=== PATIENT | female | born 1995 | race American Indian/Alaskan Native ===

== ENCOUNTER 2017-06-10 11:15 | Emergency (ER) | payer MEDICAID ==
--- NOTE | 2017-06-10 12:37 | Emergency Department Report ---
ED Female HPI - General Chief complaint: Urogenital-Female Stated complaint: VAGINAL DISCHARGE Time Seen by Provider: 06/10/17 12:25 Source: patient Mode of arrival: Ambulatory Limitations: No Limitations - History of Present Illness Initial comments: 22-year-old female past medical history Chlamydia, presents with complaint of one week of intermittent vaginal discharge and vaginal irritation. Patient denies fever chills nausea vomiting or abdominal pain. Denies dysuria. Patient is awake alert and oriented 3 nontoxic appearing. LMP is now. Patient denies dysuria or increased urinary frequency. MD Complaint: vaginal discharge, dysuria Onset/Timin -: week(s) Location: labia Severity: mild Quality: burning Consistency: intermittent Are you Now?: No Last Menstrual Period: 06/09/17 EDC: 03/16/18 - Related Data Previous Rx's Medication Instructions Recorded Last Taken Type metroNIDAZOLE [Metronidazole] 500 mg PO BID #14 tablet 06/10/17 Unknown Rx Allergies Allergy/AdvReac Type Severity Reaction Status Date / Time No Known Allergies Allergy Unverified 06/10/17 11:25 ED Review of Systems ROS: Stated complaint: VAGINAL DISCHARGE Other details as noted in HPI Constitutional: denies: chills, fever Eyes: denies: eye pain, eye discharge, vision change ENT: denies: ear pain, throat pain Respiratory: denies: cough, shortness of breath, wheezing Cardiovascular: denies: chest pain, palpitations Endocrine: no symptoms reported Gastrointestinal: denies: abdominal pain, nausea, diarrhea Genitourinary: discharge. denies: urgency, dysuria Musculoskeletal: denies: back pain, joint swelling, arthralgia Skin: denies: rash, lesions Neurological: denies: headache, weakness, paresthesias Psychiatric: denies: anxiety, depression Hematological/Lymphatic: denies: easy bleeding, easy bruising ED Past Medical Hx - Past Medical History Previous Medical History?: No - Surgical History Past Surgical History?: Yes Additional Surgical History: - Social History Smoking Status: Never Smoker Substance Use Type: None - Medications Home Medications: Home Medications Medication Instructions Recorded Confirmed Last Taken Type metroNIDAZOLE [Metronidazole] 500 mg PO BID #14 tablet 06/10/17 Unknown Rx ED Physical Exam - General Limitations: No Limitations General appearance: alert, in no apparent distress - Head Head exam: Present: atraumatic, normocephalic - Eye Eye exam: Present: normal appearance, PERRL, EOMI - ENT ENT exam: Present: mucous membranes moist - Neck Neck exam: Present: normal inspection - Respiratory Respiratory exam: Present: normal lung sounds bilaterally. Absent: respiratory distress - Cardiovascular Cardiovascular Exam: Present: regular rate, normal rhythm. Absent: systolic murmur, diastolic murmur, rubs, gallop - GI/Abdominal GI/Abdominal exam: Present: soft, normal bowel sounds - Speculum exam: Present: vaginal discharge, vaginal bleeding Bi-manual exam: Present: normal bi-manual exam (no cervical motion tenderness and no adnexal tenderness on exam) - Extremities Exam Extremities exam: Present: normal inspection - Back Exam Back exam: Present: normal inspection - Neurological Exam Neurological exam: Present: alert, oriented X3 - Psychiatric Psychiatric exam: Present: normal affect, normal mood - Skin Skin exam: Present: warm, dry, intact, normal color. Absent: rash ED Course Vital Signs 06/10/17 11:22 Temperature 98.2 F Pulse Rate 84 Respiratory 18 Rate Blood Pressure 132/64 O2 Sat by Pulse 100 Oximetry ED Medical Decision Making - Medical Decision Making A/P: cervicitis, Trichomonas 1- patient empirically treated with azithromycin and ceftriaxone 2- GC cultures sent 3- patient given follow-up with primary care/[facility] 4- course of metronidazole Critical care attestation.: If time is entered above; I have spent that time in minutes in the direct care of this critically ill patient, excluding procedure time. ED Disposition Clinical Impression: Vaginal discharge, Trichomonas infection Disposition: TO HOME OR SELFCARE Is pt being admited?: No Does the pt Need Aspirin: No Condition: Stable Instructions: Trichomoniasis (ED) Prescriptions: metroNIDAZOLE [Metronidazole] 500 mg PO BID #14 tablet Referrals: APPLE MARCUS MD [Primary Care Provider] - 3-5 Days [facility] [Provider Group] - 3-5 Days [facility] [Provider Group] - 3-5 Days Forms: Work/School Release Form(ED) Time of Disposition: 13:19
[2017-06-10 13:09] LABS: HCG Qualitative,Urine Negative (Negative)
[2017-06-10] MEDS ORDERED: XYLOCAINE 1% MPF 5 mL INFILTRATI ONE (13:18)
[2017-06-10] MEDS ORDERED: ROCEPHIN IM ONE (13:18)
[2017-06-10 13:19] LABS: Bacteria,Urine 2+ /HPF (Negative); Bilirubin,Urine NEG (Negative); Blood,Urine LG (Negative); Color,Urine Yellow (Yellow); Mucus,Urine 3+ /HPF
[2017-06-10] MEDS ORDERED: ZITHROMAX PO ONE (13:19)
[2017-06-10 13:35] VITALS: BP 123/74
== END 2017-06-10 13:32 | disposition home or self-care (01) ==
LOC: ED 11:15
DX: A59.09 Other urogenital trichomoniasis (principal)
CPT/HCPCS: 81001; 81025; 87210; 87591; 96372; 99284; J0696